=== PATIENT | male | born 1960 | race Caucasian/White ===

== ENCOUNTER 2018-04-13 08:22 | Day surgery (SDC) | payer BC ==
[2018-04-08 10:38] VITALS: BMI 32.2
[~2018-04-13 08:22] MED LIST: CLINDAMYCIN 900 MG in DEXTROSE 5% IN WATER 50 ML IVPB ONE; DEXAMETHASONE SOD PHOSPHATE 10 MG/ML 1 ML VIAL IV ONE; GENTAMICIN 500 MG in SODIUM CHLORIDE 0.9% 100 ML IVPB ONE; HEPARIN SODIUM,PORCINE 5,000 UNIT/ML 1 ML VIAL SQ ONE; HYDROmorphone 1 MG/ML 1 ML SYRINGE IVP PRN; LACTATED RINGERS 1,000 ML IV SCH; LIDOCAINE 1% 20 ML VIAL (10MG/ML) FOR IV START INTRADERMA PRN; ONDANSETRON 4 MG/2 ML VIAL IVP ONE; SCOPOLAMINE 1.5MG/72HR PATCH TRANSDERM ONE
[2018-04-13] MEDS ORDERED: LACTATED RINGERS 1,000 ML IV ONE ×2 (09:15→12:56)
--- NOTE | 2018-04-13 10:48 | P.GSHP ---
History of Present Illness H&P Date: 04/13/18 Chief Complaint: Chronic right perirectal abscess Is a 57-year-old male who's had issues with intermittent chronic right perirectal abscess. Patient Zentz today for incision and drainage in debridement of right perirectal abscess. He is aware that the wound will be packed postoperative. Past Medical History Past Medical History: Hypertension, Prostate Disorder Additional Past Medical History / Comment(s): enlarged prostate History of Any Multi-Drug Resistant Organisms: None Reported Past Surgical History: Tonsillectomy Additional Past Surgical History / Comment(s): eye surgery Past Anesthesia/Blood Transfusion Reactions: Postoperative Nausea & Vomiting ( PONV) Smoking Status: Former smoker - Past Family History Father Family Medical History: Cancer Additional Family Medical History / Comment(s): Prostate CA Medications and Allergies Home Medications Medication Instructions Recorded Confirmed Type Allopurinol [Zyloprim] 100 mg PO DAILY 04/08/18 04/08/18 History Metoprolol Succinate (ER) [Toprol 25 mg PO DAILY 04/08/18 04/08/18 History Xl] Tamsulosin [Flomax] 0.4 mg PO DAILY 04/08/18 04/08/18 History Allergies Allergy/AdvReac Type Severity Reaction Status Date / Time bee venom protein (honey bee) Allergy Anaphylaxis Verified 04/08/18 10:24 Penicillins Allergy Anaphylaxis Verified 04/08/18 10:24 Surgical - Exam Vital Signs Temp Pulse Resp BP Pulse Ox 97.8 F 65 18 174/84 98 04/13/18 09:10 04/13/18 09:10 04/13/18 09:10 04/13/18 09:10 04/13/18 09:10 - General well developed, no distress - Eyes PERRL - ENT normal pinna - Neck no masses - Respiratory normal expansion - Cardiovascular Rhythm: regular - Abdomen Abdomen: soft, non tender Assessment and Plan Assessment: Right perirectal abscess. We'll perform incision and debridement
[2018-04-13] MEDS ORDERED: BUPIVACAIN-EPI 0.25%-1:200,000 30 ML VIAL SQ ONE ×2 (11:07→11:53)
[2018-04-13] MEDS ORDERED: LIDOCAINE 1% INJ 10MG/ML (20 ML MDV) ONE (11:25)
[2018-04-13] MEDS ORDERED: SUCCINYLCHOLINE CHLORIDE 100 MG/5 ML SYR IV ONE (11:25)
[2018-04-13] MEDS ORDERED: MIDAZOLAM 2 MG/2 ML VIAL ONE (11:25)
[2018-04-13] MEDS ORDERED: PROPOFOL 10 MG/ML 20 ML VIAL IV ONE (11:25)
[2018-04-13] MEDS ORDERED: fentaNYL (PF) 50 MCG/ML 2 ML AMP ONE (11:25)
[2018-04-13] MEDS ORDERED: KETOROLAC 30 MG/ML 1 ML VIAL ONE (11:25)
[2018-04-13 12:31] VITALS: TEMP 97.6
[2018-04-13 13:18] VITALS: BP 133/77; PULSE 60; RESP 16
--- NOTE | 2018-05-24 13:05 | P.OP ---
Date of Procedure: 04/13/18 Preoperative Diagnosis: Right perirectal abscess Postoperative Diagnosis: Right perirectal abscess Procedure(s) Performed: Incision and debridement of right perirectal abscess Anesthesia: MAC Surgeon: Pollo Lemus Estimated Blood Loss (ml): 5 Pathology: other (Right perirectal abscess) Condition: stable Disposition: PACU Description of Procedure: The patient's placed on the operating table in the prone jackknife position. He received IV sedation. His perineum was prepped and draped in usual sterile fashion. The patient evidence of a chronic right perirectal abscess. This area was incised and then the tissue was debrided with sharp dissection. The Bovie was used for hemostasis. Specimens of pathology. The wound was packed with wet-to-dry gauze. The area debrided measured approximately 1 x 3 cm. Patient tolerated the procedure well was sent to recovery in stable condition.
== END 2018-04-13 13:58 | disposition home or self-care (01) ==
LOC: OR 08:22
PROVIDERS: ATTEND Surgery
DX: K61.1 Rectal abscess (principal); L94.2 Calcinosis cutis; M60.28 Foreign body granuloma of soft tissue, not elsewhere classified, other site; I10 Essential (primary) hypertension; N40.0 Benign prostatic hyperplasia without lower urinary tract symptoms; M10.9 Gout, unspecified; Z79.899 Other long term (current) drug therapy; Z88.0 Allergy status to penicillin; Z91.030 Bee allergy status; Z87.891 Personal history of nicotine dependence
CPT/HCPCS: 88304; 87070; 87205; 87075; 87077; 87186; 46040; J2250; J1644; J1100; J2405; J2001; J3010; J1885; J1580; J0330; J2704

== ENCOUNTER → 2020-06-28 | Outpatient (CLI) | payer BC ==
[2020-06-28 10:41] LABS: Basophils # (A) 0.1 k/uL (0-0.2); Basophils % (A) 1 %; Eosinophils # (A) 0.1 k/uL (0-0.7); Eosinophils % (A) 2 %; HCT 48.6 % (39.0-53.0); HGB 16.3 gm/dL (13.0-17.5); Lymphocytes # (A) 1.3 k/uL (1.0-4.8); Lymphocytes % (A) 22 %; MCH 32.4 pg (25.0-35.0); MCHC 33.5 g/dL (31.0-37.0); MCV 96.9 fL (80.0-100.0); Monocytes # (A) 0.5 k/uL (0-1.0); Monocytes % (A) 8 %; Neutrophils # (A) 3.9 k/uL (1.3-7.7); Neutrophils % (A) 65 %; Platelet Count 223 k/uL (150-450); RBC 5.01 m/uL (4.30-5.90); RDW 11.9 % (11.5-15.5)
[2020-06-28 10:55] LABS: African American GFR (CKD) >90 (>60 ml/min/1.73 sqM); Anion Gap 8 mmol/L; Blood Urea Nitrogen 12 mg/dL (9-20); Calcium 9.8 mg/dL (8.4-10.2); Carbon Dioxide 27 mmol/L (22-30); Chloride 102 mmol/L (98-107); Glucose 111 mg/dL (74-99); Non-African American GFR(CKD) >90 (>60 ml/min/1.73 sqM); Potassium 4.3 mmol/L (3.5-5.1); Sodium 137 mmol/L (137-145)
== END | disposition home or self-care (01) ==
LOC: LABPAT 09:47
PROVIDERS: ATTEND Urology
DX: Z01.818 Encounter for other preprocedural examination (principal); C61 Malignant neoplasm of prostate
CPT/HCPCS: 36415; 80048; 85025; 86850; 86900; 86901

== ENCOUNTER 2020-07-05 10:39 | Day surgery (SDC) | payer BC ==
[2020-06-29 16:15] VITALS: BMI 32.8
--- NOTE | 2020-07-02 20:01 | P.GSHP ---
History of Present Illness H&P Date: 07/02/20 Chief Complaint: Prostate cancer The patient is a 59-year-old male whose father had prostate cancer. The patient's PSA levels were 6.4 and 4.8 in 2017. He underwent prostate ultrasound, but no biopsies were obtained. Cystoscopy was performed for evaluation of microhematuria and showed evidence of BPH. In March 2019, the PSA level was 5.3. The PSA level last spring was 5.8, and it increased to 6.1 in March 2020. At that time, MANAN revealed right-sided firmness and he underwent a prostate ultrasound with biopsies. The prostate volume was 50 mL. A hypoechoic lesion was seen at the right mid base. 6 of 12 biopsies showed [place] 7 (3+4) adenocarcinoma, predominantly right-sided. The Prolaris score was 3.5. It was felt that optimal treatment options would be radiation therapy or surgery, and he elects to undergo the latter. - Cardiovascular Cardiovascular: Reports high blood pressure - Genitourinary (Male) Genitourinary: Reports erectile dysfunction, Reports nocturia Past Medical History Past Medical History: Cancer, Hypertension, Prostate Disorder Additional Past Medical History / Comment(s): hx of gout, prostate ca History of Any Multi-Drug Resistant Organisms: None Reported Past Surgical History: Tonsillectomy Additional Past Surgical History / Comment(s): bx of prostate, cyst near rectum removed, pre ca growth near iris eye removed Past Anesthesia/Blood Transfusion Reactions: Postoperative Nausea & Vomiting (PONV) Smoking Status: Former smoker - Past Family History Father Family Medical History: Cancer Additional Family Medical History / Comment(s): Prostate CA Medications and Allergies Home Medications Medication Instructions Recorded Confirmed Type Metoprolol Succinate (ER) [Toprol 25 mg PO QAM 04/08/18 06/30/20 History Xl] Tamsulosin [Flomax] 0.4 mg PO QAM 04/08/18 06/30/20 History allopurinoL [Zyloprim] 100 mg PO QAM 04/08/18 06/30/20 History Triamterene/Hydrochlorothiazid 1 each PO QAM 06/29/20 06/30/20 History [Triamterene-Hctz 37.5-25 mg Tb] amLODIPine BESYLATE 5 mg PO QAM 06/29/20 06/30/20 History Metoprolol Succinate (ER) [Toprol 100 mg PO QAM 06/30/20 06/30/20 History Xl] Allergies Allergy/AdvReac Type Severity Reaction Status Date / Time bee venom protein (honey bee) Allergy Anaphylaxis Verified 06/29/20 16:10 Penicillins Allergy Anaphylaxis Verified 06/29/20 16:10 Surgical - Exam - General well developed, well nourished, no distress - Respiratory normal respiratory effort, clear to auscultation - Cardiovascular Rhythm: regular Abnormal Heart Sounds: no systolic murmur, no diastolic murmur, no rub, no S3 Gallop, no S4 Gallop, no click, no other - Abdomen Abdomen: soft, non tender, no guarding, no rigid, no rebound - Genitourinary normal penis with no external lesions, testicles non-tender - Rectum Rectum: normal sphincter tone, no masses, other (Prostate moderately enlarged with right-sided firmness) - Psychiatric oriented to time, oriented to person, oriented to place, speech is normal, memory intact Assessment and Plan (1) Malignant neoplasm of prostate Status: Acute Code(s): C61 - MALIGNANT NEOPLASM OF PROSTATE SNOMED Code(s): 141339344 Plan: Robotic-assisted laparoscopic prostatectomy with bilateral pelvic lymphade nectomy. The procedure has been reviewed in detail with the patient. He is aware of potential risks, which include anesthesia, bleeding, infection, intestinal injury (which may require a colostomy), ureteral injury, swelling of the penis post-operatively, bladder neck contracture, urethral stricture, lymphocele, post-operative ileus, thrombophlebitis, wound separation, and possible urinary fistula. In addition, I went into great detail concerning the possibility of postop urinary incontinence, which may fail to resolve. The patient has also been advised of the possibility of treatment failure, and the possible need for adjuvant therapy. The decision has been made not to preserve the neurovascular bundles.
[~2020-07-05 10:39] MED LIST changes: -CLINDAMYCIN 900 MG in DEXTROSE 5% IN WATER 50 ML IVPB ONE; -DEXAMETHASONE SOD PHOSPHATE 10 MG/ML 1 ML VIAL IV ONE; +DEXAMETHASONE SOD PHOSPHATE 4 MG/ML 1 ML VIAL IV ONE; -GENTAMICIN 500 MG in SODIUM CHLORIDE 0.9% 100 ML IVPB ONE; -HEPARIN SODIUM,PORCINE 5,000 UNIT/ML 1 ML VIAL SQ ONE; +HEPARIN SODIUM,PORCINE 5,000 UNIT/ML 1 ML VIAL SQ PRN; +HYDROmorphone 0.5 MG/0.5 ML SYRINGE IVP PRN; -HYDROmorphone 1 MG/ML 1 ML SYRINGE IVP PRN; -LACTATED RINGERS 1,000 ML IV SCH; +LEVOFLOXACIN 500MG-D5W PMX 500 MG in DEXTROSE/WATER 1 100ML.BAG IVPB PRN; +LIDOCAINE 1% (10MG/ML) FOR IV START INTRADERMA PRN; -LIDOCAINE 1% 20 ML VIAL (10MG/ML) FOR IV START INTRADERMA PRN; -SCOPOLAMINE 1.5MG/72HR PATCH TRANSDERM ONE
[2020-07-05] MEDS: LACTATED RINGERS 1,000 ML IV SCH ×2 (12:00→19:21)
[2020-07-05] MEDS ORDERED: LACTATED RINGERS 1,000 ML IV ONE ×2 (12:01→16:43)
[2020-07-05] MEDS ORDERED: SCOPOLAMINE 1.5MG/72HR PATCH TRANSDERM ONE (12:07)
[2020-07-05] MEDS ORDERED: GLYCOPYRROLATE 0.2 MG/ML 2 ML VIAL ONE (12:27)
[2020-07-05] MEDS ORDERED: NEOSTIGMINE 1 MG/ML 10 ML VIAL ONE (12:27)
[2020-07-05] MEDS ORDERED: SUCCINYLCHOLINE CHLORIDE 100 MG/5 ML SYR IV ONE (12:27)
[2020-07-05] MEDS ORDERED: PROPOFOL 10 MG/ML 20 ML VIAL IV ONE (12:27)
[2020-07-05] MEDS ORDERED: ROCURONIUM 10 MG/ML (10 ML VIAL) IV ONE (12:27)
[2020-07-05] MEDS ORDERED: LIDOCAINE 1% INJ 10MG/ML (20 ML MDV) ONE (12:27)
[2020-07-05] MEDS ORDERED: fentaNYL (PF) 50 MCG/ML 2 ML AMP ONE (12:27)
[2020-07-05] MEDS ORDERED: MIDAZOLAM 2 MG/2 ML VIAL ONE (12:27)
[2020-07-05] MEDS ORDERED: HYDROmorphone (PF) 1 MG/ML ONE (12:27)
[2020-07-05] MEDS ORDERED: BUPIVACAINE (PF) 0.25% 30 ML VIAL SQ ONE (15:43)
--- NOTE | 2020-07-05 17:09 | P.OP ---
Date of Procedure: 07/05/20 Preoperative Diagnosis: Adenocarcinoma of the prostate Postoperative Diagnosis: Same Procedure(s) Performed: Robotic-assisted laparoscopic prostatectomy (RALP) with bilateral pelvic lymphadenectomy Anesthesia: BOBBI Surgeon: Oliver Guerrier Estimated Blood Loss (ml): 200 IV fluids (ml): 1,500 Pathology: other (Prostate, seminal vesicles, pelvic lymph nodes) Condition: stable Disposition: PACU Indications for Procedure: The patient is a 59-year-old male whose father had prostate cancer. The patient's PSA levels were 6.4 and 4.8 in 2017. He underwent prostate ultrasound, but no biopsies were obtained. Cystoscopy was performed for evaluation of microhematuria and showed evidence of BPH. In March 2019, the PSA level was 5.3. The PSA level last spring was 5.8, and it increased to 6.1 in March 2020. At that time, MANAN revealed right-sided firmness and he underwent a prostate ultrasound with biopsies. The prostate volume was 50 mL. A hypoechoic lesion was seen at the right mid base. 6 of 12 biopsies showed [place] 7 (3+4) adenocarcinoma, predominantly right-sided. The Prolaris score was 3.5. It was felt that optimal treatment options would be radiation therapy or surgery, and he elects to undergo the latter. Operative Findings: No evidence of extraprostatic disease. Description of Procedure: The patient was taken in the operating room and placed in the dorsal lithotomy position, with his legs supported in Jhonathan stirrups. He was carefully positioned on a beanbag for stability. The abdomen and external genitalia were prepped and draped sterilely. A Negron catheter was inserted. The Veress needle was passed through the anterior abdominal wall immediately cephalad to the umbilicus, and insufflation was performed to a pressure of 20 mm Hg. Once insufflation was performed, the Veress needle was removed and a supraumbilical incision was made, through which a 12 mm camera port was placed. Under camera guidance, 3 8 mm robotic ports were placed, 2 on the left and one on the right. An additional 12 mm port was placed on the right lateral side for use as an assistant store leader port. A 5 mm port was placed to the right of the camera port for suction. The patient was placed in Trendelenburg position, and docking was then performed to the da Reginald system utilizing a 4-arm approach. The abdomen was examined. The sigmoid colon was mobilized out of the pelvis. Some small bowel adhesions to the peritoneum and the pelvis were sharply divided. The peritoneum was incised lateral to the medial umbilical ligaments bilaterally, exposing the pubis. The peritoneum was then incised across the midline, allowing the bladder flap to be taken down. The endopelvic fascia was opened bilaterally, and muscular attachments from the urogenital diaphragm were swept away from the prostate. Bilateral pelvic lymphadenectomies were performed in the standard fashion. The peritoneal incisions were extended in a cephalad direction, and the vas deferens were divided bilaterally. Margins of dissection were the bifurcation of the iliac vessels proximally, the circumflex iliac vein distally, the external iliac artery laterally, and the obturator nerve medially. A combination of sharp and blunt dissection was used. Care was taken to avoid any neurovascular injury, and the use of monopolar electrocautery was avoided immediately adjacent to neurovascular structures. The lymphatic package was clipped distally. No enlarged lymph nodes were encountered. There were no complications. The vesical neck was incised transversely, down to the lumen. The Negron catheter was brought out through the anterior vesical neck incision and was used for traction. The posterior aspect of the vesical neck was incised, such that the full-thickness of the vesical neck was divided. The anterior layer of the Denonvilliers fascia was incised, exposing the vas deferens. Each were isolated and divided. Next, each of the seminal vesicles were dissected away from adjacent tissues, and vascular attachments were cauterized and divided. The posterior leaf of Denonvilliers fascia was incised transversely, allowing entry into the plane between the prostate and rectum. With lateral spreading, this plane was developed down to the apex. This exposed the lateral vascular pedicles bilaterally. These were clipped and divided in an antegrade fashion, down to the apex. The use of electrocautery was avoided to prevent thermal damage to the nerves. A nerve sparing procedure was not performed. The plane of dissection was further from the prostate on the right side than the left gi wendi that the majority of his disease was right-sided. The remaining apical attachments were swept away from the prostate. The dorsal venous complex was incised, as well as periurethral tissue. At this point, only the urethra remained intact. This was transected immediately distal to the prostatic apex using cold scissors. The specimen was placed within a specimen bag. The dorsal venous complex was sutured using a V-Loc suture in a running fashion. A second V-Loc suture was then used to place the Saad stitch, incorporating the rhabdosphincter and the edge of Denonvilliers fascia. This allowed the bladder to be taken down to the urethra, leaving the vesical neck immediately adjacent to the urethra. The vesicourethral anastomosis was then performed using a V-Loc suture in a running fashion. After completing the anastomosis, an 18-Armenian Negron catheter was placed and approximately 150 mL of 0.9 normal saline were instilled into the bladder. No extravasation of irrigant from the vesicourethral anastomosis was noted. A small amount of oozing was noted from the vascular pedicles, so Surgicel was placed bilaterally. Tisseel was sprayed into the pelvis over the vascular pedicles, dorsal vein, and vesicourethral anastomosis. The patient was returned to the supine position. Undocking was performed, and the specimen bag sutures were passed through the camera port. After removing all the ports and allowing all of the CO2 to be released from the peritoneal cavity, the camera port incision was enlarged to allow removal of the surgical specimen. The fascia of this incision was then closed using 1-PDS Vicryl suture in a running fashion. Each of the skin incisions were then closed using 4-0 Monocryl suture in a subcuticular fashion. Marcaine was injected at each of the incision sites. Dermabond was applied to each incision. The Negron catheter was connected to gravity drainage. All sponge and needle counts were correct. The patient tolerated the procedure well was taken to the recovery room in stable condition.
[2020-07-05] MEDS ORDERED: ACETAMINOPHEN TAB 325 MG TAB PO PRN (17:10)
[2020-07-05] MEDS ORDERED: HYDROmorphone 1 MG/ML 1 ML SYRINGE IVP PRN (17:10)
[2020-07-05] MEDS ORDERED: ONDANSETRON 4 MG/2 ML VIAL IVP PRN (17:10)
[2020-07-05] MEDS ORDERED: MAG HYDROX/AL HYDROX/SIMETH 30 ML CUP PO PRN (17:10)
[2020-07-05] MEDS: DEXTROSE 5%-0.45% NACL 1,000 ML IV SCH (19:20)
[2020-07-05] MEDS: KETOROLAC 15 MG/ML 1 ML VIAL IVP PRN (19:32)
[2020-07-05] MEDS: HEPARIN SODIUM,PORCINE 5,000 UNIT/ML 1 ML VIAL SQ SCH (20:36)
[2020-07-05] MEDS: HYDROcodone/APAP 5-325MG 1 EACH TAB PO PRN (23:35)
[2020-07-06] MEDS: DEXTROSE 5%-0.45% NACL 1,000 ML IV SCH (05:05)
[2020-07-06] MEDS: HYDROcodone/APAP 5-325MG 1 EACH TAB PO PRN ×2 (05:05→10:12)
[2020-07-06] MEDS: KETOROLAC 15 MG/ML 1 ML VIAL IVP PRN (07:08)
[2020-07-06 07:15] VITALS: RESP 18
[2020-07-06] MEDS ORDERED: METOPROLOL SUCCINATE (ER) 25 MG TAB.ER.24H PO SCH (09:00)
[2020-07-06] MEDS ORDERED: TRIAMTERENE-HCTZ 37.5-25MG 1 EACH TAB PO SCH (09:00)
[2020-07-06] MEDS ORDERED: allopurinoL 100 MG TAB PO SCH (09:00)
[2020-07-06] MEDS ORDERED: METOPROLOL SUCCINATE (ER) 100 MG TAB.ER.24H PO SCH (09:00)
[2020-07-06] MEDS ORDERED: amLODIPine 5 MG TAB PO SCH (09:00)
[2020-07-06 10:16] VITALS: BP 159/73; PULSE 62; TEMP 99.1
[2020-07-06] MEDS: HEPARIN SODIUM,PORCINE 5,000 UNIT/ML 1 ML VIAL SQ SCH (10:47)
--- NOTE | 2020-07-06 10:53 | P.DS ---
Providers Expected date of discharge: 07/06/20 Attending physician: Oliver Guerrier Primary care physician: Kris Xiao - Discharge Diagnosis(es) (1) Malignant neoplasm of prostate Current Visit: Yes Status: Acute Hospital Course: On the day of admission, the patient underwent an uncomplicated robotic-assisted laparoscopic prostatectomy with bilateral pelvic lymphadenectomy. The p erioperative course was unremarkable. He remained afebrile with stable vital signs. On the first postoperative day, his incisional pain was controlled with analgesics. He was ambulating without difficulty. He tolerated breakfast without nausea or vomiting. The incisions were clean and dry. The Negron catheter was draining clear yellow urine. Procedures: Robotic-assisted laparoscopic prostatectomy (RALP) with bilateral pelvic lymphadenectomy on 07/05/2020 Patient Condition at Discharge: Good Plan - Discharge Summary Discharge Rx Participant: Yes New Discharge Prescriptions: New Ciprofloxacin HCl [Cipro] 250 mg PO Q12HR #6 tablet HYDROcodone/APAP 5-325MG [[place] 5-325] 1 - 2 tab PO Q6HR PRN #6 tab PRN Reason: Severe Pain Ketorolac [Toradol] 10 mg PO Q6HR PRN #10 tab PRN Reason: Mild To Moderate Pain No Action Tamsulosin [Flomax] 0.4 mg PO QAM allopurinoL [Zyloprim] 100 mg PO QAM Metoprolol Succinate (ER) [Toprol Xl] 25 mg PO QAM Triamterene/Hydrochlorothiazid [Triamterene-Hctz 37.5-25 mg Tb] 1 each PO QAM amLODIPine BESYLATE 5 mg PO QAM Metoprolol Succinate (ER) [Toprol Xl] 100 mg PO QAM Discharge Medication List Metoprolol Succinate (ER) [Toprol Xl] 25 mg PO QAM 04/08/18 [History] Tamsulosin [Flomax] 0.4 mg PO QAM 04/08/18 [History] allopurinoL [Zyloprim] 100 mg PO QAM 04/08/18 [History] Triamterene/Hydrochlorothiazid [Triamterene-Hctz 37.5-25 mg Tb] 1 each PO QAM [History] amLODIPine BESYLATE 5 mg PO QAM 06/29/20 [History] Metoprolol Succinate (ER) [Toprol Xl] 100 mg PO QAM 06/30/20 [History] Ciprofloxacin HCl [Cipro] 250 mg PO Q12HR #6 tablet 07/06/20 [Rx] HYDROcodone/APAP 5-325MG [[place] 5-325] 1 - 2 tab PO Q6HR PRN #6 tab 07/06/20 [Rx] Ketorolac [Toradol] 10 mg PO Q6HR PRN #10 tab 07/06/20 [Rx] Follow up Appointment(s)/Referral(s): Oliver Guerrier MD [STAFF PHYSICIAN] - 07/17/20 8:00 am Activity/Diet/Wound Care/Special Instructions: Discharge home with Negron catheter. Instruct patient to use overnight drainage bag as well as urinary leg bag. Okay to shower. Diet as tolerated. No lifting, driving, or strenuous activity. Reassure patient that abdominal wall ecchymosis and penoscrotal swelling are normal. Instruct patient to begin taking antibiotics one day prior to Negron catheter removal. Discontinue tamsulosin. Discharge Disposition: HOME SELF-CARE
== END 2020-07-06 12:19 | disposition home or self-care (01) ==
LOC: OR 10:39 → 4SSUR 17:05 → OR 07-06 12:19
PROVIDERS: ATTEND Urology
DX: C61 Malignant neoplasm of prostate (principal); I10 Essential (primary) hypertension; M10.9 Gout, unspecified; Z79.899 Other long term (current) drug therapy; Z88.0 Allergy status to penicillin; Z91.030 Bee allergy status; Z87.891 Personal history of nicotine dependence; Z90.89 Acquired absence of other organs; Z80.42 Family history of malignant neoplasm of prostate
CPT/HCPCS: 88307; 88309; 55866; 38571; J2250; J1644 ×2; J1100; J2710; J2405; J1956; J2001; J3010; J1170; J1885 ×2; J0330; J2704; 86850; 86900; 86901